=== PATIENT | female | born 1975 | race Caucasian/White ===

== ENCOUNTER → 2016-08-28 | Day surgery (SDC) | payer BC ==
[~2016-08-28] MED LIST: AEROCHAMBER1 DEV IH; ALBUTEROL2 PUFFS/17 IN; ATIVAN0.5 MG NG; ATIVAN1 M1 PO; BENTYL20 MG PO; CHEWABLE VITE1 CTB PO; FLEXERIL10 MG PO; HYDROCODONE/ACE1 TA6 PO; IBU600 MG PO; KEFLEX500 M1 PO; LAMICTAL 100 M100 MG PO; LEVAQUIN750 MG PO; ONDANSETRON8 M1 PO; PREDNISONE 20MG20 MG PO; PRILOSEC20 M1 PO; TRAMADOL50 M1 PO; VICODIN 5/500 T1 TAB PO; VOLTAREN75 MG PO; WELLBUTRIN XL300 MG PO; ZANTAC 150150 MG OR; ZITHROMAX Z PA250 MG PO; ZOFRAN ODT4 MG PO
[2016-08-28 14:58] LABS: BUN 12 mg/dL (7-18); GFR (ESTIMATED) 92 ML/MIN (59-); HEMOGLOBIN 14.9 g/dL (12.2-16.2); LYMPH # 1.6 K/mm3 (0.7-4.5); LYMPH % 20.6 % (10-50.0)
--- NOTE | 2016-08-28 15:26 | RADIOLOGY REPORT PS360 ---
CARDIAC CATHETERIZATION DATE OF CATHETERIZATION:08/28/2016 3:06 PM PROCEDURES: 1. Left heart catheterization 2. Left ventriculogram 3. Selective coronary angiogram INDICATION FOR TEST: 1. Strong family history of coronary artery disease 2. Risk factors for coronary disease 3. Recurrent episodes of classic angina pectoris 4. Class IV angina pectoris Informed consent was obtained prior to the procedure. COMPLICATIONS: None ESTIMATED BLOOD LOSS: Less than 10 ml. TECHNIQUE: One percent lidocaine was used to anesthetize the right groin. The right femoral artery was accessed via the Seldinger technique. A 4-Albanian sheath was placed in the right femoral artery. The JL-4 and JR-4 catheter was also used to perform left heart catheterization and left ventriculography. At the end of the procedure the patient was transferred to the post-op holding area in stable condition for arterial sheath removal. ANGIOGRAPHIC RESULTS: 1. The left main artery normal 2. The left anterior descending artery normal 3. The circumflex artery normal 4. The right coronary artery normal dominant 5. The CHRISTIAN ventriculogram reveals normal 65% 6. The left ventricular end-diastolic pressure less than 10 mmHg IMPRESSION: 1. Normal coronary arteries. 2. Normal ejection fraction 3. Normal left ventricular end-diastolic pressure PLAN: 1. Evaluation noncardiac chest pain 2. Treatment of possible underlying anxiety
[2016-08-28 18:06] VITALS: BP 128/86
== END ==
LOC: CARDIO 10:45 → EDSTATUS 10:45 → CATHLAB 10:57 → CARDIO 10:57
PROVIDERS: Internal Medicine
PROC: B2111ZZ Fluoroscopy of Multiple Coronary Arteries using Low Osmolar Contrast (ICD-10-PCS; 2016-08-28)
PROC: B2151ZZ Fluoroscopy of Left Heart using Low Osmolar Contrast (ICD-10-PCS; 2016-08-28)
PROC: 4A023N7 Measurement of Cardiac Sampling and Pressure, Left Heart, Percutaneous Approach (ICD-10-PCS; principal; 2016-08-28 14:45)
DX: R07.9 Chest pain, unspecified (principal); Z82.49 Family history of ischemic heart disease and other diseases of the circulatory system; I20.9 Angina pectoris, unspecified; R07.89 Other chest pain
CPT/HCPCS: C1725; C1769; J1644; Q9967

== ENCOUNTER → 2016-08-31 | Outpatient (CLI) | payer BC ==
--- NOTE | 2016-09-03 20:27 | RADIOLOGY REPORT PS360 ---
PROCEDURE: 2-D M-mode and color Doppler study INDICATIONS FOR THE TEST: Chest pain+ COPD Heart Murmur Tobacco Smoking Palpitations+ Fatigue+ Syncope Edema+ Hypertension Diabetes Mellitus Rheumatic Fever SOB+REBOLLEDO Obesity Hyperlipidemia Family History HD+ Additional History Asthma, dizziness, near syncope PATIENT INFORMATION HEIGHT: 63 WEIGHT: 160 GENDER: Female B/P: 134/93 2-D/M-MODE INTERPRETATION: 2-D MEASUREMENTS OBSERVED VALUES IN CMS Right Ventricular Dimension (RVDd) 2.0 Interventricular Septum (Thickness)(IVsd) 0.7 Left Ventricular Internal Dimensions(LVIDd) 4.4 Left Ventricular Posterior Wall (Thickness)(LVPWd) 1.1 Aortic Root 2.2 Aortic Cusp Separation 2.1 Left Atrial Dimensions (LAD) 2.1 2D 1. The left atrium is normal size, the left ventricle is normal size, there is preserved left ventricular systolic function, visually estimated ejection fraction 55% with no obvious regional wall motion abnormality. 2. The right atrium and right ventricular normal size and contractility. 3. The aortic mitral and tricuspid is structurally normal. 4. The pulmonic valve is not well visualized. 5. No significant pericardial effusion noted. DOPPLER INTERROGATION: Doppler interrogation of the aortic mitral and tricuspid presence of trace mitral and tricuspid regurgitation, tricuspid regurgitant jet velocity insufficient for calculation of the right ventricular systolic pressure. CONCLUSION: 1. Normal left ventricular size, preserved left ventricular systolic function visually estimated to fraction 55% with no obvious regional wall motion abnormality. 2. Trace mitral and tricuspid regurgitation. 3. No significant pericardial effusion noted.
== END ==
LOC: RT 12:28
DX: R07.9 Chest pain, unspecified (principal); R06.00 Dyspnea, unspecified; R53.83 Other fatigue; R61 Generalized hyperhidrosis; Z82.49 Family history of ischemic heart disease and other diseases of the circulatory system

== ENCOUNTER → 2016-09-03 | Outpatient (CLI) | payer BC ==
[2016-09-03 11:14] LABS: BILIRUBIN, INDIRECT 0.23 mg/dL (0-0.9)
== END ==
LOC: LAB 10:31
PROVIDERS: Internal Medicine
DX: R07.9 Chest pain, unspecified (principal); R06.00 Dyspnea, unspecified; R53.83 Other fatigue; R61 Generalized hyperhidrosis; Z82.49 Family history of ischemic heart disease and other diseases of the circulatory system

== ENCOUNTER 2016-10-28 13:29 | Outpatient (CLI) | payer BC ==
[~2016-10-28 13:29] MED LIST changes: -CHEWABLE VITE1 CTB PO
== END 2016-10-28 16:15 | disposition home or self-care (01) ==
LOC: COP 13:29
DX: J11.1 Influenza due to unidentified influenza virus with other respiratory manifestations (principal)

== ENCOUNTER 2016-10-30 11:51 | Outpatient (CLI) | payer BC ==
[2016-10-30] VITALS (8 sets, daily range): BP systolic 102–123; BP diastolic 59–85
[2016-10-30] MEDS ORDERED: CHEWABLE VITE1 CTB PO (12:41)
== END 2016-10-30 16:15 | disposition home or self-care (01) ==
LOC: COP 11:51
DX: J11.1 Influenza due to unidentified influenza virus with other respiratory manifestations (principal)
CPT/HCPCS: J0456

== ENCOUNTER → 2017-04-22 | Outpatient (CLI) | payer BC ==
[~2017-04-22] MED LIST changes: +CHEWABLE VITE1 CTB PO
[2017-04-22 14:06] LABS: HEMOGLOBIN 13.5 g/dL (12.2-16.2); LYMPH # 1.4 K/mm3 (0.7-4.5)
[2017-04-22 15:18] LABS: BUN 11 mg/dL (7-18)
[2017-04-22 15:51] LABS: GFR (ESTIMATED) 79 ML/MIN (59-)
== END ==
LOC: LAB 13:37
PROVIDERS: Orthopaedic Surgery
DX: M25.511 Pain in right shoulder (principal)

== ENCOUNTER → 2017-05-15 | Outpatient (CLI) | payer BC ==
[2017-05-16 16:37] LABS: AMPHETAMINES/METAMPHETAMINES NEGATIVE ng/mL (<1000)
== END ==
LOC: LAB 13:17
PROVIDERS: Nurse Practitioner Family
DX: E66.9 Obesity, unspecified (principal)